=== PATIENT | male | born 1965 | race Two or more races ===

== ENCOUNTER 2023-11-11 15:04 | Emergency (ER) | payer BC, OTHER ==
[~2023-11-11] VITALS: Ht 170.2 cm; Wt 99.7 kg
[~2023-11-11 15:04] MED LIST: CHOL500021 OR; CLOP75TA28 PO; ESCI10TA PO; OXCA150T61 OR
[2023-11-11] MEDS: ONDANSETRON ODT 4 MG TAB PO ONE (16:30)
[2023-11-11] MEDS: diphenhdrAMINE HCL 25 MG CAP PO ONE (16:30)
[2023-11-11] MEDS ORDERED: PRED20TA2 PO (16:34)
[2023-11-11] MEDS ORDERED: CETI-176 PO (16:34)
[2023-11-11] MEDS ORDERED: FAMO20TA10 PO (16:34)
[2023-11-11 17:38] VITALS: BP 123/74; PULSE 71; RESP 20; TEMP 97.2; O2SAT 93
[2023-11-11] MEDS: methylPREDNISolone SOD SUCC 125 MG/2 ML VL IM ONE (17:41)
[2023-11-11] MEDS: FAMOTIDINE 20 MG TAB PO ONE (17:42)
== END 2023-11-11 17:42 | disposition home or self-care (01) ==
LOC: ER 15:04
DX: L50.9 Urticaria, unspecified (principal); R10.9 Unspecified abdominal pain; Z86.73 Personal history of transient ischemic attack (TIA), and cerebral infarction without residual deficits; Z88.2 Allergy status to sulfonamides; Z79.899 Other long term (current) drug therapy
CPT/HCPCS: 96372; 99284; J2930; Q0162

== ENCOUNTER 2023-12-31 11:15 | Emergency (ER) | payer BC ==
[~2023-12-31] VITALS: Ht 170.2 cm; Wt 100.8 kg
[~2023-12-31 11:15] MED LIST changes: +CETI-176 PO; +FAMO20TA10 PO; +PRED20TA2 PO
[2023-12-31 13:25] VITALS: BP 139/84; PULSE 74; RESP 18; TEMP 97.8; O2SAT 98
[2023-12-31] MEDS: diphenhdrAMINE HCL 50 MG/1 ML VL IV ONE (14:14)
[2023-12-31] MEDS: methylPREDNISolone SOD SUCC 125 MG/2 ML VL IV ONE (14:14)
[2023-12-31] MEDS: FAMOTIDINE (10MG/ML) 2ML VL IV ONE (14:14)
[2023-12-31] MEDS: EPINEPHrine HCL 1 MG/1 ML AMP IM ONE (15:18)
[2023-12-31] MEDS ORDERED: METH4PAK PO (15:58)
[2023-12-31] MEDS ORDERED: HYDR-3682 PO (15:58)
[2023-12-31] MEDS ORDERED: TRIA0.1O TOP (15:58)
== END 2023-12-31 16:20 | disposition home or self-care (01) ==
LOC: ER 11:15
DX: T78.49XA Other allergy, initial encounter (principal); I10 Essential (primary) hypertension; I25.2 Old myocardial infarction; J44.9 Chronic obstructive pulmonary disease, unspecified; Z86.73 Personal history of transient ischemic attack (TIA), and cerebral infarction without residual deficits; Z88.2 Allergy status to sulfonamides; Z79.899 Other long term (current) drug therapy; X58.XXXA Exposure to other specified factors, initial encounter
CPT/HCPCS: 96372; 96374; 96375; 99284; J0171; J1200; J2930; J3490

== ENCOUNTER 2024-02-02 13:01 | Inpatient (IN) | payer BC, MEDICAID ==
[~2024-02-02] VITALS: Ht 182.9 cm; Wt 75.0 kg
[~2024-02-02 13:01] MED LIST changes: +HYDR-3682 PO; +METH4PAK PO; +TRIA0.1O TOP
[2024-02-02 13:18] VITALS: PULSE 78; RESP 16; O2SAT 99
[2024-02-02] MEDS: FAMOTIDINE (10MG/ML) 2ML VL IV ONE (13:33)
[2024-02-02] MEDS: methylPREDNISolone SOD SUCC 125 MG/2 ML VL IV ONE ×2 (13:33→21:07)
[2024-02-02] MEDS: diphenhdrAMINE HCL 50 MG/1 ML VL IV ONE (13:33)
[2024-02-02] MEDS: diphenhdrAMINE HCL 50 MG/1 ML VL ONE (13:33)
[2024-02-02] MEDS: EPINEPHrine HCL 1 MG/1 ML AMP ONE (13:34)
[2024-02-02] MEDS: methylPREDNISolone SOD SUCC 125 MG/2 ML VL ONE (13:34)
[2024-02-02] MEDS: SODIUM CHLORIDE 0.9% 1,000 ML IV ONE (13:45)
[2024-02-02 13:47] LABS: Basophils # (auto) 0 10 ^3/uL (0-0.2); Basophils % (auto) 0.1 % (0.0-2.0); Eosinophils # (auto) 0.1 10 ^3/uL (0-0.8); Eosinophils % (auto) 1.6 % (0.0-7.0); Lymphocytes # (auto) 2.6 10 ^3/uL (0.4-5.4); Lymphocytes % (auto) 30.5 % (10.0-50.0); Mean Corpuscular Hemoglobin 31.3 pg (28.0-32.0); Mean Corpuscular Hgb Conc. 34.1 g/dL (32.0-36.0); Monocytes # (auto) 0.6 10 ^3/uL (0-1.3); Monocytes % (auto) 6.9 % (0.0-12.0); Neutrophils # (auto) 5.2 10 ^3/uL (1.6-8.6); Neutrophils % (auto) 60.9 % (37.0-80.0); Nucleated Red Blood Cells % 0.1 %; Red Blood Cells 5.44 10^6/uL (4.5-5.90); Red Cell Distribution Width 13.5 % (11.8-14.3); White Blood Cell 8.5 10^3/uL (4.4-10.8)
[2024-02-02 13:54] LABS: Anion Gap 4 (5-15); Carbon Dioxide 29 mmol/L (20-30); Chloride 107 mmol/L (98-107); Potassium 4.3 mmol/L (3.5-5.1); Sodium 140 mmol/L (136-145)
[2024-02-02 13:55] LABS: Calcium 9.3 mg/dL (8.5-10.1)
[2024-02-02 14:00] LABS: BUN/Creatinine Ratio 10.8 (10.0-20.0); Blood Urea Nitrogen 11 mg/dL (9-23); Glucose 95 mg/dL (74-106)
[2024-02-02] MEDS ORDERED: ONDANSETRON HCL 4 MG/2 ML VIAL IV PRN (15:15)
[2024-02-02 15:34] VITALS: BP 95/60; PULSE 100; RESP 24; TEMP 97.8; O2SAT 95
[2024-02-02] MEDS: SODIUM CHLORIDE 0.9% 1,000 ML IV SCH (16:14)
[2024-02-02] MEDS: diphenhdrAMINE HCL 25 MG CAP PO PRN (16:45)
[2024-02-02 18:07] VITALS: PULSE 79; RESP 18; O2SAT 97
[2024-02-02] MEDS: ALBUTEROL SULF 2.5 MG/0.5ML(0.5%) NEB SOLN NEB SCH (18:09)
[2024-02-02 18:16] VITALS: PULSE 84; RESP 20; O2SAT 100
[2024-02-02 20:00] VITALS: PULSE 90; RESP 19; O2SAT 96
[2024-02-02] MEDS: ACETAMINOPHEN 325 MG TAB PO PRN (20:01)
[2024-02-02] MEDS: diphenhdrAMINE HCL 50 MG/1 ML VL IV PRN (21:07)
[2024-02-03] VITALS (10 sets, daily range): BP systolic 114–124; BP diastolic 55–68; PULSE 82–100; RESP 13–28; TEMP 98; O2SAT 96–100
[2024-02-03] MEDS: CLOPIDOGREL BISULFATE 75 MG TAB PO SCH (10:12)
[2024-02-03] MEDS: predniSONE 20 MG TAB PO SCH (10:12)
[2024-02-03] MEDS ORDERED: DIPH25CA66 PO (11:05)
[2024-02-03] MEDS ORDERED: PRED20TA2 PO (11:05)
== END 2024-02-03 21:08 | disposition home or self-care (01) | DRG 916 ==
LOC: ER 13:01 → OVERFLOW 15:19
PROVIDERS: ADMIT Internal Medicine; ATTEND Internal Medicine
DX: T78.3XXA Angioneurotic edema, initial encounter (principal); I69.354 Hemiplegia and hemiparesis following cerebral infarction affecting left non-dominant side; K21.9 Gastro-esophageal reflux disease without esophagitis; F32.9 Major depressive disorder, single episode, unspecified; R09.02 Hypoxemia; I10 Essential (primary) hypertension; J44.9 Chronic obstructive pulmonary disease, unspecified; T50.995A Adverse effect of other drugs, medicaments and biological substances, initial encounter; F41.9 Anxiety disorder, unspecified; Z91.018 Allergy to other foods; Z79.02 Long term (current) use of antithrombotics/antiplatelets; Z79.899 Other long term (current) drug therapy; Z88.2 Allergy status to sulfonamides; Y92.89 Other specified places as the place of occurrence of the external cause
CPT/HCPCS: 36415; 71046; 80048; 85025; 94640; 96374; 96375; 99291; G0378; J0171; J3490

== ENCOUNTER 2024-03-10 09:05 | Inpatient (IN) | payer BC, MEDICAID ==
[~2024-03-10] VITALS: Ht 167.6 cm; Wt 99.2 kg
[~2024-03-10 09:05] MED LIST changes: -CETI-176 PO; -CHOL500021 OR; +DIPH25CA66 PO; -ESCI10TA PO; -FAMO20TA10 PO; -HYDR-3682 PO; -METH4PAK PO; -OXCA150T61 OR; -TRIA0.1O TOP
[2024-03-10] MEDS: diphenhdrAMINE HCL 50 MG/1 ML VL IV ONE ×2 (09:30→15:41)
[2024-03-10] MEDS: methylPREDNISolone SOD SUCC 125 MG/2 ML VL IV ONE (09:30)
[2024-03-10] MEDS: EPINEPHrine HCL 1 MG/1 ML AMP SC ONE (09:30)
[2024-03-10 09:42] LABS: Basophils % (auto) 0.4 % (0.0-2.0); Eosinophils # (auto) 0 10 ^3/uL (0-0.8); Eosinophils % (auto) 0.3 % (0.0-7.0); Hemoglobin 18.1 g/dL (13.5-17.5); Lymphocytes # (auto) 2.3 10 ^3/uL (0.4-5.4); Monocytes # (auto) 0.9 10 ^3/uL (0-1.3); Neutrophils # (auto) 9.1 10 ^3/uL (1.6-8.6); Nucleated Red Blood Cells % 0.2 %; Red Cell Distribution Width 13.6 % (11.8-14.3); White Blood Cell 12.4 10^3/uL (4.4-10.8)
[2024-03-10 09:43] LABS: Basophils # (auto) 0.1 10 ^3/uL (0-0.2); Hematocrit 52.4 % (41.0-53.0); Lymphocytes % (auto) 18.4 % (10.0-50.0); Mean Corpuscular Hemoglobin 31.4 pg (28.0-32.0); Mean Corpuscular Hgb Conc. 34.5 g/dL (32.0-36.0); Monocytes % (auto) 7.5 % (0.0-12.0); Neutrophils % (auto) 73.4 % (37.0-80.0); Red Blood Cells 5.76 10^6/uL (4.5-5.90)
[2024-03-10 09:45] VITALS: PULSE 118; RESP 20; TEMP 98.3; O2SAT 97
[2024-03-10 09:57] LABS: INR 1.03 (0.9-1.15); Partial Thromboplastin Time 28.3 SEC (24.5-34.5); Prothrombin Time 10.9 sec (9.3-11.8)
[2024-03-10 10:04] LABS: Alanine Aminotransferase 29 U/L (7-40); Albumin 4.5 g/dL (3.2-4.8); Alkaline Phosphatase 99 U/L (46-116); Anion Gap 7 (5-15); Aspartate Aminotransferase 20 U/L (13-40); Bilirubin, Total 1.1 mg/dL (0.2-1.0); Calcium 9.4 mg/dL (8.7-10.4); Carbon Dioxide 23 mmol/L (20-30); Chloride 106 mmol/L (98-107); Glucose 128 mg/dL (74-106); Potassium 3.9 mmol/L (3.5-5.1); Sodium 136 mmol/L (136-145); Total Protein 7.1 g/dL (5.7-8.2)
[2024-03-10 10:14] LABS: BUN/Creatinine Ratio 6.3 (10.0-20.0); Blood Urea Nitrogen 7 mg/dL (9-23)
[2024-03-10] MEDS ORDERED: ONDANSETRON HCL 4 MG/2 ML VIAL IV PRN (11:00)
[2024-03-10] MEDS ORDERED: ACETAMINOPHEN 325 MG TAB PO PRN (11:00)
[2024-03-10] MEDS: SODIUM CHLORIDE 0.9% 1,000 ML IV SCH (12:06)
[2024-03-10] MEDS: LORATADINE 10 MG TAB PO SCH (12:08)
[2024-03-10] MEDS: methylPREDNISolone SOD SUCC 125 MG/2 ML VL IV SCH (12:26)
[2024-03-10 20:18] VITALS: PULSE 102; RESP 16; O2SAT 95
[2024-03-10] MEDS: diphenhdrAMINE HCL 25 MG CAP PO PRN (22:07)
[2024-03-11] MEDS: ASPirin 81 mg TAB PO SCH (08:19)
[2024-03-11] MEDS ORDERED: CLOPIDOGREL BISULFATE 75 MG TAB PO SCH (10:00)
[2024-03-11 14:01] VITALS: BP 126/60; PULSE 100; RESP 18; O2SAT 96
[2024-03-11] MEDS ORDERED: LORA-483 PO (17:53)
[2024-03-11] MEDS ORDERED: METH4PAK PO (17:53)
[2024-03-11] MEDS ORDERED: ASPI1TAB20 PO (17:53)
== END 2024-03-11 18:26 | disposition home health service (06) | DRG 916 ==
LOC: ER 09:05 → OVERFLOW 11:09
PROVIDERS: ADMIT Internal Medicine; ATTEND Internal Medicine
DX: T78.3XXA Angioneurotic edema, initial encounter (principal); I69.354 Hemiplegia and hemiparesis following cerebral infarction affecting left non-dominant side; T78.49XA Other allergy, initial encounter; X58.XXXA Exposure to other specified factors, initial encounter; E11.9 Type 2 diabetes mellitus without complications; J44.9 Chronic obstructive pulmonary disease, unspecified; I10 Essential (primary) hypertension; Z91.018 Allergy to other foods; Z79.4 Long term (current) use of insulin; Z79.82 Long term (current) use of aspirin; Y92.89 Other specified places as the place of occurrence of the external cause
CPT/HCPCS: 36415; 71045; 80053; 83880; 84484; 85025; 85610; 85730; 92610; 96372; 96374; 96375; 96376; G0378; J0171